=== PATIENT | male | born 1995 | race Caucasian/White ===

== ENCOUNTER 2018-02-03 16:11 | Emergency (ER) | payer OTHER ==
[2018-02-03 16:16] VITALS: BP 117/67
--- NOTE | 2018-02-03 16:51 | EDPHY ---
H & P Time Seen by Provider: 02/03/18 16:39 HPI/ROS: CHIEF COMPLAINT: Dog bite left knee HISTORY OF PRESENT ILLNESS: 22-year-old immunocompetent male with out-of-date tetanus was running today [place] a trail, wearing shorts, a non least dog lunged at him biting him on the left lateral knee. He was able to will ambulate and self extricate. Occurred approximately 1 hour prior to arrival. No paresthesia no sensory motor deficit PRIMARY CARE PROVIDER: REVIEW OF SYSTEMS: 10 systems reviewed and are negative with exception of illness mentioned in the history of present illness PHYSICAL EXAM (Prior to examination, patient consented to physical exam, hands were washed and my usual and customary physical exam procedures followed) 1) GENERAL: Well-developed, well-nourished, alert and oriented. Appears to be in no acute distress. 2) HEAD: Normocephalic 3) HEENT: sclera anicteric 4) LUNGS: Breathing comfortably. 5) SKIN: Left lateral knee, 2 discrete, 2 cm superficial lacerations. 6) MUSCULOSKELETAL: [Full flexion extension of the left knee with no instability. No pain with range of motion. Soft compartments. Distal pulses brisk Smoking Status: Never smoked Constitutional: Initial Vital Signs Temperature (C) 36.7 C 02/03/18 16:14 Heart Rate 90 02/03/18 16:14 Respiratory Rate 16 02/03/18 16:14 Blood Pressure 117/67 02/03/18 16:14 O2 Sat (%) 99 02/03/18 16:14 O2 Delivery Mode Room Air Allergies/Adverse Reactions: No Known Allergies Allergy (Unverified 02/03/18 16:13) Home Medications: Medication Instructions Recorded Amoxicillin/Clavulanate Pot 875 mg PO BID #14 tab 02/03/18 [Augmentin 875 mg tab] MDM/Departure - MDM ED Course/Re-evaluation: Wound has been irrigated, tetanus updated and started on Augmentin. I have examined this wound very closely. This appears to be a very superficial wound. While the patient and I did discuss the possibility of traumatic arthrotomy from a dog bite, I think that this is less than likely. At this time I do not think that the benefits of saline load testing , x-ray CT imaging of the knee outweigh the risks in this patient whom I think traumatic arthrotomy is less than likely. Definitely however, should she develop erythema, decrease in range of motion or any other symptoms needs to seek immediate medical attention. He feels comfortable with this plan. Care of patient under supervision of secondary supervising physician Dr Tariq . - Depart Disposition: Home, Routine, Self-Care Clinical Impression: Dog bite of left knee Qualifiers: Encounter type: initial encounter Qualified Code(s): S81.052A - Open bite, left knee, initial encounter; W54.0XXA - Bitten by dog, initial encounter; W54.0XXA - Bitten by dog, initial encounter Condition: Good Instructions: Animal Bite (ED) Additional Instructions: Return to the ER if you develop redness, swelling, discharge, warmth to the wound, red streaks going up your leg, or any other symptoms that concern you. Prescriptions: Amoxicillin/Clavulanate Pot [Augmentin 875 mg tab] 875 mg PO BID #14 tab Referrals: Matt José MD [Medical Doctor] - 1-2 days without fail
[2018-02-03] MEDS ORDERED: TDAP ADULT 0.5 ML INJ (BOOSTRIX) IM ONE (16:53)
[2018-02-03] MEDS ORDERED: AMOXICILLIN/CLAVULANATE POT 875/125 MG TAB PO ONE (16:53)
== END 2018-02-03 17:09 | disposition home or self-care (01) ==
DX: S81.052A Open bite, left knee, initial encounter (principal); Z23 Encounter for immunization; W54.0XXA Bitten by dog, initial encounter; Y92.828 Other wilderness area as the place of occurrence of the external cause; Y93.02 Activity, running; Y99.8 Other external cause status